=== PATIENT | female | born 1980 | race Caucasian/White ===

== ENCOUNTER 2023-08-25 14:58 | Outpatient (OUT) | payer OTHER, SELFPAY ==
--- NOTE | 2023-08-25 | MM_ITS ---
Patient Name: REBECA DICK MR#: [id number] : 1980 Exam Date: 08/25/2023 Ordering Doctor: DR Michelet Jon . RADIOLOGY REPORT PROCEDURE: MM TOMOSYNTHESIS SCREENING BI COMPARISON: MG MAMM RT DIAG FU, 06/11/2021. MG MAMM SCREEN 3D STEPHANIE CAD, 06/22/2022. INDICATIONS: Screening Calculator Name NCI Breast Cancer Risk Assessment Tool 5 Year Breast Cancer Risk 0.70% Lifetime Breast Cancer Risk 9.90% Personal Breast Cancer No Personal Ovarian Cancer No Treatments None Family Cancers Grandmother-maternal with breast cancer at age 42; Aunt-maternal with breast cancer at age 64. LOCATION: [facility] BREAST COMPOSITION: The breasts are heterogeneously dense,which may obscure small masses. FINDINGS: DIAGNOSTIC CATEGORY 1--NEGATIVE. NO CHANGE FROM COMPARISON ASSESSMENT. Scattered benign-appearing lymph nodes are present. RIGHT BREAST: No significant suspicious finding. LEFT BREAST: No significant suspicious finding. RECOMMENDATIONS: ROUTINE MAMMOGRAM AND CLINICAL EVALUATION IN 12 MONTHS. PLEASE NOTE: A NORMAL MAMMOGRAM DOES NOT EXCLUDE THE POSSIBILITY OF BREAST CANCER. A CLINICALLY SUSPICIOUS PALPABLE LUMP SHOULD BE BIOPSIED. Dictated by: Llye De Los Santos MD on 08/26/2023 at 08:06 Approved by: Lyle De Los Santos MD on 08/26/2023 at 08:08
== END 2023-08-25 14:59 | disposition home or self-care (01) ==
LOC: MAMMO 14:59
PROVIDERS: PCP Family Medicine; Visit Provider Obstetrics & Gynecology
DX: Z12.31 Encounter for screening mammogram for malignant neoplasm of breast (principal); Z80.3 Family history of malignant neoplasm of breast
CPT/HCPCS: 77063; 77067

== ENCOUNTER 2024-08-24 12:58 | Outpatient (OUT) | payer OTHER, SELFPAY ==
--- OUTSIDE RECORDS SUMMARY | 2024-08-15 07:28 | XMS_ITS | Encounter Summary ---
Author Organization [facility] tem Address [id number] [place] [address] Care Team Providers Care Box Finisher Name Role Phone Kristan Bryson MD Primary Care Provider [phone] Reason for Referral * Cardiology (Routine) - Closed Specialty Diagnoses / Procedures Referred By Mumtaz hanna Referred To Contact Diagnoses Palpitation Procedures Echo complete W/O contrast Daisy Weinstein MD [address] [place] [address] Phone: tel: fax: Referral ID Status Reason Start Date Expiration Date Visits Re quested Visits Authorized [id number] Closed 07/20/2024 07/20/2025 1 1 Reason for Visit * Cardiology (Routine) - Closed Specialty Diagnoses / Procedures Referred By Mumtaz hanna Referred To Contact Diagnoses Palpitation Procedures Echo complete W/O contrast Daisy Weinstein MD [address] [place] [address] Phone: tel: fax: Referral ID Status Reason Start Date Expiration Date Visits Re quested Visits Authorized [id number] Closed 07/20/2024 07/20/2025 1 1 Encounter Details Date Type Department Care Team (Latest Contact Info) Description 08/15/2024 7:28 AM EDT - 08/15/2024 11:59 PM EDT Hospital Encounter [facility] - Cardiovascular [address] [place] [phone] Daisy Weinstein MD [address] [place] [address] Palpitation Discharge Disposition: Home Social History Tobacco Use Types Packs/Day Years Used Date Smoking Tobacco: Some Days Cigarettes Started: 09/21/2020 Smokeless Tobacco: Never Alcohol Use Standard Drinks/Week Comments Yes 5 (1 standard drink = 0.6 oz pur e alcohol) 6 PER WK Childcare Answer Date Recorded Childcare Unknown 08/23/2018 Employment Answer Date Recorded Employment Unknown 08/23/2018 Hunger Screening Answer Date Recorded Within the past 12 months we worried whether our food would run out before we got money to buy more. Never True 07/20/2024 Within the past 12 months th e food we bought just didn't last and we didn't have money to get more. Never True 07/20/2024 Purpose - Life Answer Date Recorded Purpose and direction in life Unknown Comments No Sex and Gender Information Value Date Recorded Sex Assigned at Not on file Legal Sex Female 11:37 AM EDT Gender Identity Not on file Sexual Orientation Not on file documented as of this encounter Medications at Time of Discharge metoprolol succinate XL (TOPROL XL) 25 mg 24 hr tabletIndications: Palpitation,Primar y hypertension Take 0.5 tablets (12.5 mg total) by mouth in the morning. 30 tablet 11 07/20/2024 documented as of this encounter Plan of Treatment Not on file documented as of this encounter Procedures Procedure Name Priority Date/Time Associated Diagnosis Comments ECHO COMPLETE WO CONTRAST Routine 08/15/2024 8:05 AM EDT Palpitation documented in this encounter Results * Echo complete W/O contrast (08/15/2024 8:05 AM EDT) LVOT stroke volume 79.48 ml XCELERA LV Systolic Volume 20.70 mL XCELERA EF 70 % XCELERA FS 32 28 - 44 % XCELERA LV Diastolic Volume 69.70 mL XCELERA LVIDd 3.80 cm XCELERA LVIDs 2.60 cm XCELERA IVS 0.90 0.6 - 1.1 cm XCELERA PW 0.90 0.6 - 1.1 cm XCELERA LVOT diameter 2.00 cm XCELERA TDI 15.70 cm/s XCELERA MV TDI E' (medial) 11.70 cm/s XCELERA LA Volume Index 20.0 mL/m2 XCELERA E/A ratio 1.96 XCELERA E wave deceleration time 176.00 msec XCELERA MV Peak E Paul 86.30 cm/s XCELERA MV Peak A Paul 44.10 cm/s XCELERA LA size 3.00 cm XCELERA Aortic root 2.60 cm XCELERA LA volume 35.50 cm3 XCELERA RV diastolic dimension (basal) 29.0 mm XCELERA TAPSE 2.40 cm XCELERA AV peak paul 133.00 cm/s XCELERA LVOT peak paul 1.15 m/s XCELERA AV VTI 27.70 cm XCELERA LVOT peak VTI 25.30 cm XCELERA AV mean gradient 3.00 mmHg XCELERA AV peak gradient 7.08 mmHg XCELERA AV valve area 2.87 XCELERA Valve area - Index 1.6 XCELERA MV pressure 1/2 time 52.00 ms XCELERA MV valve area p 1/2 method 4.23 cm2 XCELERA TR Peak Paul 2.1 m/s XCELERA TR peak gradient 14.44 mmHg XCELERA PV mean gradient 3.00 mmHg XCELERA PV peak gradient 4.84 mmHg XCELERA LV ESV A2C 39.40 mL XCELERA LV ESV A4C 29.80 mL XCELERA LV RWT 2D 47.37 XCELERA Echo EF Estimated 70 % XCELERA AV Velocity Ratio 0.91 XCELERA Left Ventricle Mass 101.73988 [id number] 8 g XCELERA Interventricular Septum Diastolic Thickness by 2D 9 cm XCELERA Est. RA pressure 3 mmHg XCELERA RA area 12.7 cm2 XCELERA RV Peak Systolic Pressure 21 mmHg XCELERA Anatomical Region Laterality Modality Chest N/A Ultrasound Narrative 08/15/2024 11:46 AM EDT Left Ventricle: Left ventricle appears normal in size. Systolic function is normal with an ejection fraction of 60-65%. The quantitative EF by 2D Rosas biplane is 70%. Right Ventricle: Systolic function is normal. Normal tricuspid annular plane systolic excursion. Mitral Valve: The anterior leaflet is thickened possibly prolapsed. There is mild regurgitation. Left Ventricle Left ventricle appears normal in size. Wall thickness is normal. Systolic function is normal with an ejection fraction of 60-65%. The quantitative EF by 2D Rosas biplane is 70%. No obvious regional wall motion abnormalities. Normal diastolic function is present. Lateral E' is 15.70 cm/s. Medial E' is 11.70 cm/s. Right Ventricle The right ventricular basal diameter is 29.0 mm. Systolic function is normal. Normal tricuspid annular plane systolic excursion. Normal systolic excursion velocity by TDI (>9.5 cm/s). Left Atrium Left atrium volume index is normal. The left atrial volume index is 20.0 mL/m2. Right Atrium Right atrium is normal in size. The right atrial area is 12.7 cm2. IVC/SVC The right atrial pressure is estimated at 3 mmHg. There is normal collapse with deep inspiration. Mitral Valve Mitral valve structure is normal. The anterior leaflet is thickened possibly prolapsed. There is mild regurgitation. There is no evidence of mitral valve stenosis. Tricuspid Valve Tricuspid valve appears to be normal. There is mild regurgitation. RVSP calculated at 21 mmHg. RVSP is based on RA pressure of 3 mmHg. Aortic Valve The aortic valve is trileaflet. There is no regurgitation or stenosis. Pulmonic Valve The pulmonic valve was not well visualized. Pulmonic valve structure is grossly normal. There is no regurgitation or stenosis. The peak gradient is 4.84 mmHg. The mean gradient is 3.00 mmHg. Ascending Aorta The aortic root is normal in size. Pericardium The pericardium appears normal. Study Details A complete echo was performed using complete 2D, color flow Doppler and spectral Doppler. Overall the study quality was good. Wall Scoring Baseline Score Index: 1.00 The left ventricular wall motion is normal. us Daisy Weinstein MD CV ECHO ORDERABLES Final Res ult documented in this encounter Visit Diagnoses Diagnosis Palpitation Palpitations documented in this encounter Care Teams Box Finisher Relationship Specialty Start Date End Date Adelaide, Kristan G, MD [address] [place] [address] PCP - General Family Medicine 09/23/17 documented as of this encounter
--- OUTSIDE RECORDS SUMMARY | 2024-08-24 13:00 | XMS_ITS | Encounter Summary ---
Author Organization [employer] tem Address [id number] [address] [place] [address] Care Team Providers Care Pillow Filler Name Role Phone Kristan Bryson MD Primary Care Provider [phone] Encounter Details Date Type Department Care Team (Latest Contact Info) Description 08/15/2024 Travel Social History Tobacco Use Types Packs/Day Years [...] on file documented as of this encounter Plan of Treatment Not on file documented as of this encounter Visit Diagnoses Not on filedocumented in this encounter Care Teams Pillow Filler Relationship Specialty Start Date End Date Kristan Bryson MD [address] [place], [place] [id number] PCP - General Family Medicine 09/23/17 documented as of this encounter
--- OUTSIDE RECORDS SUMMARY | 2024-08-24 13:00 | XMS_ITS | Encounter Summary ---
Author Organization [facility] Address [address] [place] [address] Care Team Providers Care Public Speaking Coach Name Role Phone Paz Correa MD Primary Care Provider [phone] Encounter Details Date Type Department Care Team (Late st Contact Info) Description 08/26/2023 Clinisync Result Encounter [facility] External Department Unsolicited Provider, Generic External Data Social History Tobacco Use Types Packs/Day Years Used Date Smoking Tobacco: Never Assessed Comments Unknown Sex and Gender Information Value Date Recorded Sex Assigned at Female 01/27/2023 5:37 PM EST Legal Sex Female 7:32 PM EDT Gender Identity Female 01/27/2023 5:37 PM EST Sexual Orientation Not on file documented as of this encounter Plan of Treatment Not on file documented as of this encounter Procedures Procedure Name Priority Date/Time Associated Diagnosis Comments MM TOMOSYNTHESIS SCREENING BI 08/26/2023 8:08 AM EDT documented in this encounter Results * MM TOMOSYNTHESIS SCREENING BI (08/26/2023 8:08 AM EDT) Anatomical Region Laterality Modality Other 08/26/2023 8:08 AM EDT Narrative 08/26/2023 8:09 AM EDT The [address] [address] Mammography Report Signed Patient: Rebeca Alves MR#: [id number] : 1980 Acct:[id number] Age/Sex: 43 / F ADM Date: 08/25/23 Loc: MAMMO Attending Dr: Michelet Jon D.O. Ordering Physician: Michelet Jon D.O. Results: Date of Service: 08/25/23 Follow Up: Procedure(s): MM tomosynthesis screening BI Accession Number(s): [id number] cc: Michelet Jon D.O.; FELIPE EDWARDSNIFER Patient Name: REBECA ALVES MR#: [id number] : 1980 Exam Date: 08/25/2023 Ordering Doctor: DR Michelet Jon . RADIOLOGY REPORT PROCEDURE: MM TOMOSYNTHESIS SCREENING BI COMPARISON: MG MAMM RT DIAG FU, 06/11/2021. MG MAMM SCREEN 3D STEPHANIE CAD, 06/22/2022. INDICATIONS: Screening Calculator Name NCI Breast Cancer Risk Assessment Tool 5 Year Breast Cancer Risk 0.70% Lifetime Breast Cancer Risk 9.90% Personal Breast Cancer No Personal Ovarian Cancer No Treatments None Family Cancers Grandmother-maternal with breast cancer at age 42; Aunt-maternal with breast cancer at age 64. LOCATION: [facility] BREAST COMPOSITION: The breasts are heterogeneously dense,which may obscure small masses. FINDINGS: DIAGNOSTIC CATEGORY 1--NEGATIVE. NO CHANGE FROM COMPARISON ASSESSMENT. Scattered benign-appearing lymph nodes are present. RIGHT BREAST: No significant suspicious finding. LEFT BREAST: No significant suspicious finding. RECOMMENDATIONS: ROUTINE MAMMOGRAM AND CLINICAL EVALUATION IN 12 MONTHS. PLEASE NOTE: A NORMAL MAMMOGRAM DOES NOT EXCLUDE THE POSSIBILITY OF BREAST CANCER. A CLINICALLY SUSPICIOUS PALPABLE LUMP SHOULD BE BIOPSIED. Dictated by: Lyle De Los Santos MD on 08/26/2023 at 08:06 Approved by: Lyle De Los Santos MD on 08/26/2023 at 08:08 Dictated By: Lyle De Los Santos M.D. Signed By: 08/26/23 0809 DD/ 0808 TD/TT: Director Of Development: Procedure Note Radiology, RadiologistMD - 08/26/2023 [place] [address] Mammography Report Signed Patient: Rebeca Alves AMR#: [id number] : 1980Acct:[id number] Age/Sex: 43 / FADM Date: 08/25/23 Loc: MAMMO Attending Dr: Michelet Jon D.O. Ordering Physician: Michelet Jon D.O.Results: Date of Service: 08/25/23Follow Up: Procedure(s): MM tomosynthesis screening BI Accession Number(s): [id number] cc: Michelet Jon D.O.; MARVIN EDWARDS Patient Name: REBECA ALVES MR#: [id number] : 1980 Exam Date: 08/25/2023 Ordering Doctor: DR Michelet Jon . RADIOLOGY REPORT PROCEDURE: MM TOMOSYNTHESIS SCREENING BI COMPARISON: MG MAMM RT DIAG FU, 06/11/2021. MG MAMM SCREEN 3D STEPHANIE CAD, 06/22/2022. INDICATIONS: Screening Calculator Name NCI Breast Cancer Risk Assessment Tool 5 Year Breast Cancer Risk 0.70% Lifetime Breast Cancer Risk 9.90% Personal Breast Cancer No Personal Ovarian Cancer No Treatments None Family Cancers Grandmother-maternal with breast cancer at age 42; Aunt-maternal with breast cancer at age 64. LOCATION: [facility] BREAST COMPOSITION: The breasts are heterogeneously dense,which may obscure small masses. FINDINGS: DIAGNOSTIC CATEGORY 1--NEGATIVE. NO CHANGE FROM COMPARISON ASSESSMENT. Scattered benign-appearing lymph nodes are present. RIGHT BREAST: No significant suspicious finding. LEFT BREAST: No significant suspicious finding. RECOMMENDATIONS: ROUTINE MAMMOGRAM AND CLINICAL EVALUATION IN 12 MONTHS. PLEASE NOTE: A NORMAL MAMMOGRAM DOES NOT EXCLUDE THE POSSIBILITY OFBREAST CANCER. A CLINICALLY SUSPICIOUS PALPABLE LUMP SHOULD BE BIOPSIED. Dictated by: Lyle De Los Santos MD on 08/26/2023 at 08:06 Approved by: Lyle De Los Santos MD on 08/26/2023 at 08:08 Dictated By: Lyle De Los Santos M.D. Signed By:08/26/23 0809 DD/ 0808 TD/TT: Director Of Development: us Generic External Data Provider [facility] Final Result documented in this encounter Visit Diagnoses Not on filedocumented in this encounter Care Teams Public Speaking Coach Relationship Specialty Start Date End Date Paz Correa MD [address] [place] [address] PCP - General Family Medicine 07/20/22 documented as of this encounter
--- OUTSIDE RECORDS SUMMARY | 2024-08-24 13:00 | XMS_ITS | Encounter Summary ---
Author Organization [employer] [facility] Address [id number] [place] [address] Care Team Providers Care Animal Nursery Worker Name Role Phone Kristan Bryson MD Primary Care Provider Encounter Details Date Type Department Care Team (Late st Contact Info) Description 10/08/2020 Orders Only [facility] [address] [place] [phone] External, Scanning Provider Social History Tobacco Use Types Packs/Day Years Used Date Smoking Tobacco: Former Cigarettes S tarted: 09/21/2020 Smokeless Tobacco: Never Alcohol Use Standard Drinks/Week Comments Yes 0 (1 standard drink = 0.6 oz pur e alcohol) 6 PER WK Childcare Answer Date Recorded Childcare Unknown 08/23/2018 Employment Answer Date Recorded Employment Unknown 08/23/2018 Purpose - Life Answer Date Recorded Purpose and direction in life Unknown Comments No Sex and Gender Information Value Date Recorded Sex Assigned at Not on file Legal Sex Female 11:37 AM EDT Gender Identity Not on file Sexual Orientation Not on file COVID-19 Exposure Response Date Recorded In the last month, have you been in contact with someone who was confirmed or suspected to have Coronavirus / COVID-19? No / Unsure 10/07/2020 1:52 PM EDT documented as of this encounter Plan of Treatment Not on file documented as of this encounter Procedures Procedure Name Priority Date/Time Associated Diagnosis Comments ECG 12-LEAD Routine 09/24/2020 2:49 PM EDT MULTIPLE LABS Routine 09/24/2020 MULTIPLE LABS Routine 09/24/2020 documented in this encounter Results * ECG 12 lead (09/24/2020 2:49 PM EDT) us Scanning Provider External ECG ORDERABLES Final Result Performing Organization Address City/[facility] Co de Phone Number MANUALLY TRANSCRIBED RESULTS * Multiple labs (09/24/2020) 09/24/2020 us Scanning Provider External CT IMAGING Final Result Performing Organization Address [facility] Co de Phone Number MANUALLY TRANSCRIBED RESULTS * Multiple labs (09/24/2020) 09/24/2020 us Scanning Provider External CT IMAGING Final Result Performing Organization Address [facility] Co de Phone Number MANUALLY TRANSCRIBED RESULTS documented in this encounter Visit Diagnoses Not on filedocumented in this encounter Care Teams Animal Nursery Worker Relationship Specialty Start Date End Date Kristan Bryson MD [address] [place] [address] PCP - General Family Medicine 09/23/17 documented as of this encounter
--- OUTSIDE RECORDS SUMMARY | 2024-08-24 13:00 | XMS_ITS | Clinical Summary ---
Author Organization [employer] tem Address [id number] [place] [address] Care Team Providers Care Visitor Services Assistant Name Role Phone Kristan Bryson MD Primary Care Provider Allergies No known active allergies Medications metoprolol succinate XL (TOPROL XL) 25 mg 24 hr tabletIndications :Palpitation,Prim stephanie hypertension Take 0.5 tablets (12.5 mg total) by mouth in the morning. 30 tablet 11 Active Active Problems Problem Noted Date Diagnosed Date Tachycardia 10/07/2020 Encounters Date Type Department Care Team Description 08/15/2024 7:28 AM EDT - 08/15/2024 11:59 PM EDT Hospital Encounter [facility] - Cardiovascular [address] [place] [phone] Daisy Weinstein MD Palpitation Discharge Disposition: Home 08/15/2024 Travel 07/20/2024 9:30 AM EDT Office Visit [facility] [address] [place] [phone] Daisy Weinstein MD Tachycardia (Primary Dx); Palpitation; Primary hypertension 07/18/2024 Travel from Last 3 Months Family History Medical History Relation Name Comments Heart disease Father Carlyle sierra Mitral valve a nd a pacemaker and had some other work done on his heart in june of 2024 Breast cancer Maternal Grandmother Teto ayon No Known Problems Mother Relation Name Status Comments Father Carlyle sierra Alive Maternal Grandmother Teto ayon Mother Alive Social History Tobacco Use Types Packs/Day Years Used Date Smoking Tobacco: Some Days Cigarettes Started: 09/21/2020 Smokeless Tobacco: Never Tobacco Cessation:Ready to Q uit: Not Asked; Counseling Given: Not Answered Alcohol Use Standard Drinks/Week Comments Yes 5 [...] on file Sexual Orientation Not on file Last Filed Vital Signs Vital Sign Reading Time Taken Comments Blood Pressure 134/82 07/20/2024 9:15 AM EDT Pulse 82 07/20/2024 9:15 AM EDT Temperature - - Respiratory Rate - - Oxygen Saturation 98% 07/20/2024 9:15 AM EDT Inhaled Oxygen Concentration - - Weight 68.8 kg (151 lb 9.6 oz) 07/20/2024 9:15 A M EDT Height 165.1 cm (5' 5 ) 07/20/2024 9:15 AM EDT Body Mass Index 25.23 07/20/2024 9:15 AM EDT Plan of Treatment Health Maintenance Due Date Last Done Comments Tobacco Counseling 1980 Depression Screening 1992 Adult BMI Follow Up Plan 1998 DTaP,Tdap and Td Vaccines (6 - Tdap) 03/11/1999 03/10/1999, 08/02/1985, 09/11/1981, Additional history exists Influenza Vaccine 11/12/2024 01/06/2009 Pap Smear 06/11/2025 06/11/2022 Adult BMI Screening 07/20/2025 07/20/2024 Tobacco Screening 07/20/2025 07/20/2024 Medical Devices Not on file Procedures Procedure Name Priority Date/Time Associated Diagnosis Comments ECHO COMPLETE WO CONTRAST Routine 08/15/2024 8:05 AM EDT Palpitation POCT EKG Routine 07/20/2024 Tachycardia from Last 3 Months Results * Echo complete W/O contrast (08/15/2024 [...] Velocity Ratio 0.91 XCELERA Left Ventricle Mass 101.81321 [id number] 8 g XCELERA Interventricular Septum Diastolic Thickness [...] MD CV ECHO ORDERABLES Final Res ult * POCT EKG (07/20/2024) us Daisy Weinstein MD ECG ORDERABLES Final Result Performing Organization Address City/State/[facility] Co de Phone Number MANUALLY TRANSCRIBED RESULTS from Last 3 Months Insurance [employer] Member Subscriber Plan / Payer (Ef fective 2024-Present) Name:Margo Alves Relation to Subscriber:Spouse Name:Suman Alves Date of :1983 Address: [address] [place] [address] Payer ID:Not on file Type:Not on file Address: [facility] [address] [id number] Care Teams Visitor Services Assistant Relationship Specialty Start Date End Date Kristan Bryson MD [address] [place] [address] PCP - General Family Medicine 09/23/17
--- OUTSIDE RECORDS SUMMARY | 2024-08-24 13:00 | XMS_ITS | Clinical Summary ---
Author Organization [facility] Address [address] [place] [address] Care Team Providers Care Wire Insulator Name Role Phone Paz Correa MD Primary Care Provider [phone] Allergies No known active allergies Medications No known medications Active Problems Problem Noted Date Diagnosed Date Dyspareunia in female 06/29/2024 Flexural atopic dermatitis 06/29/2024 Menorrhagia with irregular cycle 06/29/2024 Tachycardia 10/07/2020 Encounters Date Type Department Care Team Description 06/29/2024 9:40 AM EDT Office Visit [facility] [address] [place] [phone] Paz Correa MD Acute pharyngitis, unspecified etiology (Primary Dx) 06/29/2024 Bamboo flowsheet [facility] [address] [place] [phone] Paz Correa MD 06/29/2024 Travel from Last 3 Months Family History Medical History Relation Name Comments Rheum arthritis Mother Relation Name Status Comments Father Alive Mother Alive Social History Tobacco Use Types Packs/Day Years Used Date Smoking Tobacco: Every Day Cigarettes Smokeless Tobacco: Never Tobacco Cessation:Ready to Q uit: Not Asked; Counseling Given: Not Answered Alcohol Use Standard Drinks/Week Comments Yes 0 (1 standard drink = 0.6 oz pur e alcohol) PHQ-2 Answer Date Recorded Patient Health Questionnaire-2 Score 0 06/29/2024 Comments No Sex and Gender Information Value Date Recorded Sex Assigned at Female 01/27/2023 5:37 PM EST Legal Sex Female 7:32 PM EDT Gender Identity Female 01/27/2023 5:37 PM EST Sexual Orientation Not on file Last Filed Vital Signs Vital Sign Reading Time Taken Comments Blood Pressure 136/78 06/29/2024 9:42 AM EDT Pulse 81 06/29/2024 9:42 AM EDT Temperature - - Respiratory Rate 18 06/29/2024 9:42 AM EDT Oxygen Saturation 99% 06/29/2024 9:42 AM EDT Inhaled Oxygen Concentration - - Weight 70.8 kg (156 lb) 06/29/2024 9:42 AM EDT Height 167.6 cm (5' 6 ) 06/29/2024 9:42 AM EDT Body Mass Index 25.18 06/29/2024 9:42 AM EDT Plan of Treatment Health Maintenance Due Date Last Done Comments Mammogram 08/25/2024 08/26/2023, 06/12, 05/18/2021, Additional history exists Influenza Vaccine (Season Ended) 2024 Cervical Cancer Screening 06/12/2027 HPV/Cotest 06/12/2027 Pap Smear 06/12/2027 06/11/2022 Procedures Procedure Name Priority Date/Time Associated Diagnosis Comments POCT RAPID STREP A Routine 06/29/2024 12 :35 PM EDT Acute pharyngitis, unspecified etiology MM TOMOSYNTHESIS SCREENING BI 08/26/2023 8:08 AM EDT PAP SMEAR Routine 06/11/2022 12:00 AM EDT from Last 3 Months or Most Recently Relevant to Health Maintenance Results * (ABNORMAL) POCT rapid strep A manually resulted (06/29/2024 12:35 PM EDT) Rapid Strep A Screen Positive( A) Negative, None Detected Swab 06/29/2024 12:3 5 PM EDT Paz Correa MD POINT OF CARE TEST ENTER/EDIT OR DERABLES Final Result * MM TOMOSYNTHESIS SCREENING BI (08/26/2023 8:08 AM EDT) Anatomical Region Laterality Modality Other 08/26/2023 8:08 AM EDT Narrative 08/26/2023 8:09 AM EDT The [address] [address] Mammography Report Signed Patient: Rebeca Alves MR#: [id number] : 1980 Acct:[id number] Age/Sex: 43 / F ADM Date: 08/25/23 Loc: MAMMO Attending Dr: Michelet Jon D.O. Ordering Physician: Michelet Jon D.O. Results: Date of Service: 08/25/23 Follow Up: Procedure(s): MM tomosynthesis screening BI Accession Number(s): [id number] cc: Michelet Jon D.O.; MARVIN EDWARDS Patient Name: REBECA ALVES MR#: [id number] : 1980 Exam Date: 08/25/2023 Ordering Doctor: [...] breast cancer at age 64. LOCATION: The [facility] BREAST COMPOSITION: The breasts are heterogeneously [...] Lyle De Los Santos M.D. Signed By: 08/26/2309 DD/ 7 TD/TT: [employer] Integrator: Procedure Note Radiology, Radiologist, - 08/26/2023 [place] [address] Mammography Report Signed Patient: Rebeca Alves AMR#: [id number] : 1980Acct:[id number] Age/Sex: 43 / FADM Date: 08/25/23 Loc: MAMMO Attending Dr: Michelet Jon D.O. Ordering Physician: Michelet Jon D.O.Results: Date of Service: 08/25/23Follow Up: Procedure(s): MM tomosynthesis screening BI Accession Number(s): [id number] cc: Michelet Jon D.O.; MARVIN EDWARDS Patient Name: REBECA ALVES MR#: [id number] : 1980 Exam Date: 08/25/2023 Ordering Doctor: [...] breast cancer at age 64. LOCATION: The [facility] BREAST COMPOSITION: The breasts are heterogeneously [...] M.D. Signed By:08/26/23 0809 DD/ 0808 TD/TT: [employer] Integrator: us Generic External Data Provider [facility] Final Result * Pap Smear (06/11/2022 12:00 AM EDT) Swab Cervical swab / Unknown us Freddy Flaherty MD LAB CYTOLOGY ORDERABLES Final Result EXTERNAL LAB from Last 3 Months or Most Recently Relevant to Health Maintenance Insurance [employer] Care Teams Wire Insulator Relationship Specialty Start Date End Date Paz Correa MD [address] [phone] PCP - General Family Medicine 07/20/22
--- OUTSIDE RECORDS SUMMARY | 2024-08-24 13:00 | XMS_ITS | Encounter Summary ---
Author Organization [facility] Address [id number] [place] [address] Care Team Providers Care Operations Lead Name Role Phone Kristan Brsyon MD Primary Care Provider [phone] Encounter Details Date Type Department Care Team (Late st Contact Info) Description 10/02/2020 Orders Only [facility] [address] [place] [phone] External, Scanning Provider Social History Tobacco Use Types Packs/Day Years Used Date Smoking Tobacco: Never Assessed Childcare Answer Date Recorded Childcare Unknown 08/23/2018 [...] Procedure Name Priority Date/Time Associated Diagnosis Comments HOLTER MONITOR - UP TO 24 HOUR Routine 02/10/2010 NUC STRESS LEXISCAN/EXERCISE Routine 03/24/2009 ECHO DOPPLER Routine 03/24/2009 documented in this encounter Results * Holter monitor-24 hour (02/10/2010) Anatomical Region Laterality Modality Chest N/A Other us Scanning Provider External [facility] CARDIAC SERVICES O RDERABLES Final Result * Echo Doppler (03/24/2009) Anatomical Region Laterality Modality Chest N/A Ultrasound us Scanning Provider External CV ECHO ORDERABLES Fi nal Result * Nuc stress Lexiscan/Exercise (03/24/2009) Anatomical Region Laterality Modality Chest N/A Nuclear Medicine us Scanning Provider External CV STRESS ORDERABLES Final Result documented in this encounter Visit Diagnoses Not on filedocumented in this encounter Care Teams Operations Lead Relationship Specialty Start Date End Date Kristan Bryson MD [address] [place] [address] PCP - General Family Medicine 09/23/17 documented as of this encounter
--- NOTE | 2024-08-24 13:22 | MM_ITS ---
Patient Name: REBECA DICK MR#: [id number] : 1980 Exam Date: 08/24/2024 Ordering Doctor: SANCHO ALCALA RADIOLOGY REPORT PROCEDURE: MM TOMOSYNTHESIS SCREENING BI COMPARISON: MM TOMOSYNTHESIS SCREENING BI, 08/25/2023. MG MAMM SCREEN 3D STEPHANIE CAD, 06/22/2022. MG MAMM STEPHANIE DIAG W CAD, 07/30/2009. INDICATIONS: Screening Calculator Name NCI Breast Cancer Risk Assessment Tool 5 Year Breast Cancer Risk 0.80% Lifetime Breast Cancer Risk 9.80% Personal Breast Cancer No Personal Ovarian Cancer No Treatments None Family Cancers Grandmother-paternal with brain cancer at age 60; Grandmother-maternal with breast cancer at age 42; Aunt-maternal with breast cancer at age 64. LOCATION: [facility] BREAST COMPOSITION: The breasts are heterogeneously dense,which may obscure small masses. FINDINGS: RIGHT BREAST: MASS (finding with convex borders visible on two orthogonal views), characterized by obscured indeterminate morphology, posterior depth, 10 o'clock position, and 8 mm size. DIAGNOSTIC CATEGORY 0--INCOMPLETE: NEED ADDITIONAL IMAGING EVALUATION. LEFT BREAST: No significant suspicious finding. RECOMMENDATIONS: ADDITIONAL MAMMOGRAPHIC VIEWS REQUIRED: RIGHT BREAST - 8 ULTRASOUND: RIGHT BREAST PLEASE NOTE: A NORMAL MAMMOGRAM DOES NOT EXCLUDE THE POSSIBILITY OF BREAST CANCER. A CLINICALLY SUSPICIOUS PALPABLE LUMP SHOULD BE BIOPSIED. Dictated by: Antwan Gee DO on 08/24/2024 at 14:20 Approved by: Antwan Gee DO on 08/24/2024 at 14:28
--- OUTSIDE RECORDS SUMMARY | 2024-08-24 13:26 | XMS_ITS | CCD ---
Author Organization [facility] Care Team Providers Care Dyer And Washer Name Role Phone KARINESSAK ., DR PALMA Admitting Unavailabl e KARASIK ., DR PALMA Attending Unavailabl e KARASIK ., DR PALMA Consulting Unavailabl e GRACE, DR WONG Primary Care Unavailable MARIBEL KANG Consulting Unavailable ALISON II, JEAN CLAUDE Consulting Unavailable KARASIK ., DR PALMA Admitting Unavailabl e KARASIK ., DR PALMA Attending Unavailabl e REQUEST, DR HAGEN LISTED Primary Care Unavaila ble KARASIK ., DR PALMA Consulting Unavailabl e KARASIK ., DR PALMA Admitting Unavailabl e KARASIK ., DR PALMA Attending Unavailabl e REQUEST, DR HAGEN LISTED Primary Care Unavaila ble KARASIK ., DR PALMA Consulting Unavailabl e ZIEBMIKE, DR ADAMA Camacho Consulting Unavailable KARASIK ., DR PALMA Admitting Unavailabl e KARASIK ., DR PALMA Attending Unavailabl e GRACE, DR WONG Primary Care Unavailable KARASIK ., DR PALMA Consulting Unavailabl e KARASIK ., DR PALMA Admitting Unavailabl e KARASIK ., DR PALMA Attending Unavailabl e GRACE, DR WONG Primary Care Unavailable KARASIK ., DR PALMA Consulting Unavailabl e KARASIK ., DR PALMA Admitting Unavailabl e KARASIK ., DR PALMA Attending Unavailabl e GRACE, DR WONG Primary Care Unavailable KARASIK ., DR PALMA Consulting Unavailabl e AGUBOSIMAGNOLIA Pineda Consulting Unavailable FLAQUITO LANDRUM Consulting Unavailable ARYAN DE SOUZA Consulting Unavailable Paz Correa MD Primary Care Provider PAZ CORREA Attending Unavailable SANCHO GIORDANO Attending Unavailable Kristan Edwards MD Primary Care Provider [phone] DAISY JOHNSON Attending Unavailable KRISTAN EDWARDS Referring Unavailable KRISTAN EDWARDS Primary Care Unavailable DAISY JOHNSON Attending Unavailable DAISY JOHNSON Referring Unavailable KRISTAN EDWARDS Primary Care Unavailable Medications Current Medications Medication Drug Class(es) Dates Sig (Normalized) Sig (Original) amoxicillin 500 mg oral capsule (2 sources) Penicillin-class Antibacterial Start: 06-29-2024 End: 07-06-2024 take 1 capsule by mouth in the morning, then take 1 capsule by mouth in the evening, then take 1 capsule by mouth at bedtime amoxicillin (Amoxil) 500 MG capsule Indications: Acute pharyngitis, unspecified etiology Take 1 capsule (500 mg) by mouth in the morning and 1 capsule (500 mg) in the evening and 1 capsule (500 mg) before bedtime. Do all this for 7 days. 21 capsule 06/29/2024 07/06/2024 Active 24 hr metoprolol succinate 25 mg extended release oral tablet (2 sources) beta-Adrenergic Ignacio Start: 07-20-2024 take 0.5 tablet by mouth every twenty-four hours in the morning metoprolol succinate XL (TOPROL XL) 25 mg 24 hr tablet Indications: Palpitation , Primary hypertension Take 0.5 tablets (12.5 mg total) by mouth in the morning. 30 tablet 11 07/20/2024 Active Start: 11-25-2020 End: 07-20-2024 take 0.5 tablet by mouth once daily metoprolol succinate XL (TOPROL-XL) 25 mg 24 hr tablet Take 0.5 tablets (12.5 mg total) by mouth daily. 30 tablet 11/25/2020 07/20/2024 Discontinued (Reorder) Problems Active Problems Problem Classification Problem Date Documented Date Episodic/Chronic Abdominal pain (5 sources) Pelvic and perineal pain; Translations: [PELVIC AND PERINEAL PAIN] Onset: 07-24-2021 Episodic Allergic reactions (2 sources) Flexural atopic dermatitis; Translations: [Other atopic dermatitis] Onset: 06-29-2024 06-29-2024 Chronic Cardiac dysrhythmias (8 sources) Tachycardia; Translations: [Tachycardia, unspecified] Onset: 10-07-2020 06-29-2024 Episodic Essential hypertension (3 sources) Essential (primary) hypertension; Translations: [Essential hypertension] Onset: 08-18-2021 07-20-2024 Chronic Immunizations and screening for infectious disease (1 source) Encounter for screening for human papillomavirus (HPV); Translations: [ENC SCREENING HUMAN PAPILLOMAVIRUS] Onset: 06-18-2022 Episodic Menstrual disorders (4 sources) Excessive and frequent menstruation with irregular cycle; Translations: [Dysmenorrhea, unspecified] Onset: 08-18-2021 06-29-2024 Chronic Other female genital disorders (1 source) Unspecified dyspareunia; Translations: [UNSPECIFIED DYSPAREUNIA] Onset: 06-17-2022 Chronic Other female genital disorders (2 sources) Pain in female genitalia on intercourse; Translations: [Unspecified dyspareunia] Onset: 06-29-2024 06-29-2024 Chronic Other screening for suspected conditions (not mental disorders or infectious disease) (8 sources) Encounter for screening mammogram for malignant neoplasm of breast; Translations: [Encounter for screening for malignant neoplasm of cervix] Onset: 06-11-2022 Episodic Other upper respiratory infections (2 sources) Acute pharyngitis; Translations: [Acute pharyngitis, unspecified] 06-29-2024 Episodic Residual codes; unclassified (1 source) Family history of malignant neoplasm of breast; Translations: [FAMILY HX MALIG NEOPLASM OF BREAST] Onset: 06-28-2022 Episodic Substance-related disorders (1 source) Nicotine dependence, cigarettes, uncomplicated; Translations: [NICOTINE DEPEND CIGARETTES UNCOMP] Onset: 06-17-2022 Chronic Unclassified (1 source) CONTACT W/AND (SUSP) EXPOS COVID-19; Translations: [CONTACT W/AND (SUSP) EXPOS COVID-19] Onset: 08-05-2021 Unclassified (1 source) New Patient Onset: 07-20-2024 Past or Other Problems Problem Classification Problem Date Documented Da te Episodic/Chronic Contraceptive and procreative management (1 source) Tubal ligation status; Translations: [TUBAL LIGATION STATUS] Onset: 08-18-2021 Episodic Inflammatory diseases of female pelvic organs (1 source) Female pelvic peritoneal adhesions (postinfective); Translations: [FE PELV PERITON ADHES POSTINFECTIVE] Onset: 08-18-2021 Episodic Other female genital disorders (1 source) Hypertrophy of uterus; Translations: [HYPERTROPHY OF UTERUS] Onset: 08-18-2021 Episodic Other female genital disorders (1 source) Other specified conditions associated with female genital organs and menstrual cycle; Translations: [OTH SPEC COND FE GEN ORG MENST CYCL] Onset: 08-18-2021 Episodic Results Test Name Value Interpretation Reference Range Facility POCT EKGon 07-20-2024 [facility] - Microbiology an d Antimicrobial susceptibilityon 06-29-2024 S. pyogenes Ag Ql (Throat) Positive Abnormal Negative, None Detected [facility] No Panel Informationon 06-29 Interpretation and review of laboratory results Abnormal [facility] MG MAMM SCREEN 3D STEPHANIE CADon 06-22-2022 MG MAMM SCREEN 3D STEPHANIE CAD Patient: MARGO DICK Exam Date: 06/22/2022 : 1980 Gender:F Ordering : DR MINERVA VARMA . Admission #: [id number] Family : Order #: [id number] CLICK HERE TO VIEW EXAM RADIOLOGY REPORT PROCEDURE: MAMMOGRAM SCREENING 3D BILATERAL CAD COMPARISON: MG MAMM RT DIAG FU, 06/11/2021. MG MAMM SCREEN 3D STEPHANIE CAD, 05/18/2021. MG MAMM STEPHANIE DIAG W CAD, 07/30/2009. INDICATIONS: Screening mammography Calculator Name NCI Breast Cancer Risk Assessment Tool 5 Year Breast Cancer Risk 0.70% Lifetime Breast Cancer Risk 10.00% Personal Breast Cancer No Personal Ovarian Cancer No Treatments None Family Cancers Grandmother-maternal with breast cancer at age 42; Aunt-maternal with breast cancer at age 64. LOCATION: [facility] BREAST COMPOSITION: Heterogeneously dense,which may obscure small masses. FINDINGS: DIAGNOSTIC CATEGORY 1--NEGATIVE. RIGHT BREAST: No significant suspicious finding. No significant change has occurred. LEFT BREAST: No significant suspicious finding. No significant change has occurred. RECOMMENDATIONS: ROUTINE MAMMOGRAM AND CLINICAL EVALUATION IN 12 MONTHS. PLEASE NOTE: A NORMAL MAMMOGRAM DOES NOT EXCLUDE THE POSSIBILITY OF BREAST CANCER. A CLINICALLY SUSPICIOUS PALPABLE LUMP SHOULD BE BIOPSIED. Dictated by: Adama Ugalde M.D. on 06/22/2022 at 13:05 Approved by: Adama Ugalde M.D. on 06/22/2022 at 13:08 Normal [facility] PAP ACOG PANEL 2: 30 to 65on 06-21-2022 . . Normal [facility] Comment on above: Result Comment: Perf ormed at: WB Performed By: #### [id number] #### [facility] [address] [address] [address] Nba De León Age Gdln ACOG Testing 30-65 Normal [facility] Comment on above: Performed By: #### [id number] #### [facility] [address] [address] [address] Nba De León DIAGNOSIS: Comment Normal [facility] Comment on above: Result Comment: NEGA TIVE FOR INTRAEPITHELIAL LESION OR MALIGNANCY. REACTIVE CELLULAR CHANGES AND/OR REPAIR ARE PRESENT. Performed at: WB Performed By: #### [id number] #### [facility] [address] [place] [address] Dr. Nba De León Electronically signed by: Comment Normal [facility] Comment on above: Result Comment: Liliana Keys MD, Pathologist Performed at: WB Performed By: #### [id number] #### [facility] [address] [address] [address] Nab De León HPV Aptima Negative Normal Negative [facility] Comment on above: Result Comment: This nucleic acid amplification test detects fourteen high-risk HPV types (16,18,31,33,35,39,45,51,52,56,58,59,66,68) without differentiation. Performed at: =G Performed By: #### [id number] #### [facility] [address] [address] [address] Nba De León HPV Genotype Reflex Comment Normal [facility] Comment on above: Result Comment: Crit eria not met, HPV Genotype not performed. Performed at: WB Performed By: #### [id number] #### [facility] [address] [address] [address] Nba De León Methodology: Comment Normal [facility] Comment on above: Result Comment: This liquid based ThinPrep(R) pap test was screened with the use of an image guided system. Performed at: WB Performed By: #### [id number] #### [facility] [address] [place] [address] Dr. Nba De León Note: Comment Normal [facility] Comment on above: Result Comment: The Pap smear is a screening test designed to aid in the detection of premalignant and malignant conditions of the uterine cervix. It is not a diagnostic procedure and should not be used as the sole means of detecting cervical cancer. Both false-positive and false-negative reports do occur. . Performed at: WB Performed By: #### [id number] #### [facility] [address] [place] [address] Dr. Nba De León Performed by: Comment Normal [facility] Comment on above: Result Comment: Yasmin Reyes, Green Building Architect (ASCP) Performed at: WB Performed By: #### [id number] #### [facility] [address] [place] [address] Dr. Nba De León Specimen adequacy: Comment Normal [facility] Comment on above: Result Comment: Sati sfactory for evaluation. Endocervical and/or squamous metaplastic cells (endocervical component) are present. Performed at: WB Performed By: #### [id number] #### [facility] [address] [place] [address] Dr. Nba De León URon 06-14-2022 , QUAL Negative Normal NEGATIVE [facility] Comment on above: Performed By: #### P REGU #### [facility] [address] [place] [address] Dr. Nba De León PREG HCG QUALon 08-03-2021 , QUAL Negative Normal NEGATIVE [facility] Comment on above: Performed By: #### P REG #### [facility] [address] [place] [address] Dr. Nba De León Covid-19 PCR (CVDTB)on 07-12 SARS-CoV-2 (COVID-19) RNA MARQUIS+probe Ql (Unsp spec) Not detected Normal NOT DETECTED [facility] Comment on above: Result Comment: This test is not yet approved or cleared by the [place] FDA. When there are no FDA-approved or cleared tests available, and other criteria are met, FDA can make tests available under an emergency access mechanism called an Emergency Use Authorization (EUA). The EUA for this test is supported by the [place] of Health and Human Service's (HHS's) declaration that circumstances exist to justify the emergency use of in vitro diagnostics for the detection and/or diagnosis of the virus that causes COVID-19. This EUA will remain in effect (meaning this test can be used) for the duration of the COVID-19 declaration justifying emergency of IVDs, unless it is terminated or revoked by FDA (after which the test may no longer be used). When diagnostic testing is negative, the possibility of a false negative should be considered in the context of a patient's recent exposures and the presence of clinical signs and symptoms consistent with SARS-CoV-2. Performed By: #### C [facility] #### [facility] [address] [place] [address] Dr. Nba De León Vital Signs Date Time Vital Sign Value Performing Clinician Facility 07-20-2024 09:15-0400 Body height 165.1 cm Daisy Johnson MD Work Phone: [facility] 07-20-2024 09:15-0400 Body mass index (BMI) [Ratio] 25.23 kg/m2 Daisy Johnson MD Work Phone: [facility] 07-20-2024 09:15-0400 Body weight 68.77 kg Daisy Johnson MD Work Phone: [facility] 07-20-2024 09:15-0400 Diastolic blood pressure 82 mm[Hg] Daisy Johnson MD Work Phone: [facility] 07-20-2024 09:15-0400 Heart rate 82 /min Daisy Johnson MD Work Phone: [facility] 07-20-2024 09:15-0400 SaO2% (BldA) [Mass fraction] 98 % Daisy Johnson MD Work Phone: [facility] 07-20-2024 09:15-0400 Systolic blood pressure 134 mm[Hg] Daisy Johnson MD Work Phone: [facility] 06-29-2024 09:42-0400 Body height 167.6 cm Paz Correa MD Work Phone: [facility] 06-29-2024 09:42-0400 Body mass index (BMI) [Ratio] 25.18 kg/m2 Paz Correa MD Work Phone: [facility] 06-29-2024 09:42-0400 Body weight 70.76 kg Paz Correa MD Work Phone: [facility] 06-29-2024 09:42-0400 Diastolic blood pressure 78 mm[Hg] Paz Correa MD Work Phone: [facility] 06-29-2024 09:42-0400 Heart rate 81 /min Paz Correa MD Work Phone: [facility] 06-29-2024 09:42-0400 Respiratory rate 18 /min Paz Correa MD Work Phone: [facility] 06-29-2024 09:42-0400 SaO2% (BldA) [Mass fraction] 99 % Paz Correa MD Work Phone: [facility] 06-29-2024 09:42-0400 Systolic blood pressure 136 mm[Hg] Paz Correa MD Work Phone: [facility] 02-21-2024 12:58-0500 Body mass index (BMI) [Ratio] 24.05 kg/m2 Sancho Floro CNM Work Phone: [facility] 02-21-2024 12:58-0500 Body weight 67.59 kg Sancho Floro CNM Work Phone: [facility] 02-21-2024 12:58-0500 Diastolic blood pressure 100 mm[Hg] Sancho Floro CNM Work Phone: [facility] 02-21-2024 12:58-0500 Systolic blood pressure 150 mm[Hg] Sancho Floro CNM Work Phone: [facility] Encounters Encounter Date Encounter Type Care Provider Facility Start: 08-15-2024 End: 08-15-2024 ambulatory [facility] Start: 07-20-2024 End: 07-20-2024 Office outpatient new 45 minutes Daisy Johnson MD Work Phone: [facility] Comment on above: Tachycardia (Primary Dx); Palpitation; Primary hypertension Start: 07-20-2024 End: 07-20-2024 ambulatory [facility] Start: 06-29-2024 End: 06-29-2024 Bamboo flowsheet Paz Correa MD Work Phone: [facility] Start: 06-29-2024 End: 06-29-2024 Bamboo flowsheet Paz Correa MD Work Phone: [facility] Start: 06-29-2024 End: 06-29-2024 Office outpatient visit 15 minutes Paz Correa MD Work Phone: [facility] Comment on above: Acute pharyngitis, u nspecified etiology (Primary Dx) Start: 06-29-2024 End: 06-29-2024 ambulatory PAZ CORREA Not Available Start: 02-21-2024 End: 02-21-2024 Bamboo flowsheet Sancho Fairo CNM Work Phone: [facility] Start: 02-21-2024 End: 02-21-2024 Bamboo flowsheet Sancho Fairo CNM Work Phone: [facility] Start: 02-21-2024 End: 02-21-2024 Gynecological examination normal Sancho Fairo CNM Work Phone: [facility] Start: 02-21-2024 End: 02-21-2024 Patient encounter status Sancho Fairo CNM Work Phone: [facility] Work Phone: Start: 02-21-2024 End: 02-21-2024 Periodic preventive med est patient 40-64yrs Sancho Fairradha CN Work Phone: [facility] Comment on above: Wellness examination (Primary Dx); Normal gynecologic examination Start: 02-21-2024 End: 02-21-2024 ambulatory SANCHO L GIULIANA Not Available Start: 06-22-2022 End: 06-23-[address] MINERVA VARMA . Facility:[facility] Start: 06-14-2022 End: 06-14-[address] MINERVA VARMA . Facility:[facility] Start: 06-11-2022 End: 06-11-[address] MINERVA VARMA . Facility:[facility] Start: 08-05-2021 Encounter for preprocedural laboratory examination DR MINERVA VARMA . [facility] Start: 08-03-2021 End: 08-03-[address] MINERVA VARMA . Facility:[facility] Start: 07-30-2021 End: 07-31-[address] MINERVA VARMA . Facility:[facility] Start: 07-30-2021 End: 07-31-2021 Encounter for preprocedural laboratory examination DR MINERVA VARMA . Facility:[facility] Start: 07-21-2021 End: 07-22-[address] MINERVA VARMA . Facility:[facility] Procedures Date Procedure Procedure Detail Performing Clinician Start: 07-20-2024 Ecg routine ecg w/le ast 12 lds w/i&r Daisy Johnson MD Work Phone: Start: 06-29-2024 Iaadiadoo streptococ cus group a Paz Correa MD Work Phone: Start: 08-26-2023 Mammography Sancho Tana sheets CN Work Phone: Start: 06-11-2022 Microscopic observat ion [Identifier] in Cervix by Cyto stain Sancho Giuliana CN Work Phone: Plan of Treatment Date Care Activity Detail Author Start: 06-12-2027 Screening for malignant neoplasm of cervix [facility] Start: 07-20-2025 Adult BMI Screening Adult BMI Screening [facility] Start: 07-20-2025 Tobacco Screening Tobacco Screening [facility] Start: 06-11-2025 Screening for malignant neoplasm of cervix Pap Smear [facility] Start: 11-12-2024 Influenza vaccination [facility] Start: 08-25-2024 Screening for malignant neoplasm of breast Mammogram [facility] Start: 08-15-2024 End: 08-15-2024 Patient encounter procedure 08/15/2024 7:30 AM EDT Appointment [facility] [address] [place] [id number] Daisy Johnson MD [address] [place] [address] [facility] Start: 07-20-2024 End: 07-20-2025 Echo complete W/O contrast Echo complete W/O contrast Echocardiography Routine Palpitation Expected: 07/20/2024, Expires: 07/20/2025 [facility] Work Phone: Comment on above: Expected: 07/20/2024, Expires: Start: 06-29-2024 End: 06-29-2024 Patient encounter procedure 06/29/2024 9:40 AM EDT Office Visit [facility] [address] [place] [phone] Paz Correa MD [address] [place] [address] Arrived [facility] Comment on above: Arrived Start: 02-21-2024 End: 02-20-2025 Lipid 1996 panel - Serum or Plasma Lipid panel Lab Routine Normal gynecologic examination Wellness examination Expected: 02/21/2024 (Approximate), Expires: 02/20/2025 [facility] Comment on above: Expected: 02/21/2024 (Approximate), Expi res: 02/20/2025 Start: 02-21-2024 End: 02-20-2025 TSH W/REFLEX TO FT4 TSH W/REFLEX TO FT4 Lab Routine Normal gynecologic examination Wellness examination Expected: 02/21/2024 (Approximate), Expires: 02/20/2025 [facility] Comment on above: Expected: 02/21/2024 (Approximate), Expi res: 02/20/2025 Start: 02-21-2024 End: 02-21-2024 Patient encounter procedure 02/21/2024 1:00 PM EST Office Visit [facility] [address] [place] [address] Sancho Giordano CNM [address] [place], [place] [id number] Arrived [facility] Comment on above: Arrived Start: 11-13-2023 Influenza vaccination Influenza Vaccine (#1) [facility] Start: 03-11-1999 DTaP,Tdap and Td Vaccines (6 - Tdap) DTaP,Tdap and Td Vaccines (6 - Tdap) [facility] Start: 1998 Adult BMI Follow Up Plan Adult BMI Follow Up Plan [facility] Start: 1992 Depression Screening Depression Screening [facility] Start: 1980 Tobacco Counseling Tobacco Counseling [facility] CBC panel - Blood by Automated count CBC Lab Routine Normal gynecologic examination Wellness examination Ordered: 02/21/2024 [facility] Work Phone: Comment on above: Ordered: 02/21/2024 Comprehensive metabolic 2000 panel - Serum or Plasma Comprehensive metabolic panel Lab Routine Normal gynecologic examination Wellness examination Ordered: 02/21/2024 [facility] Comment on above: Ordered: 02/21/2024 Immunizations Immunization Date Immunization Notes Care Provider Fa cili 01-06-2009 influenza virus vaccine, unspecified formulation Daisy Johnson MD Work Phone: [facility] Payers Date Payer Category Payer Commercial Managed C are - PPO [employer] [id number] 2024 Private Health Insurance [employer] [id number] 2024 Unknown [id number] 2015 Managed Care HMO (unspecified) [employer] [id number] 1980 Unknown [id number] [id number] 1980 Unknown [id number] [id number]. [id number] 1980 Unknown [id number] [id number]. [id number] 1980 Unknown [id number] [id number]. [id number] 1980 Unknown [id number] [id number] [id number] 1980 Unknown [id number] [id number]. [id number] 1980 Unknown [id number] [id number]. 2.1259 1980 Unknown [id number] [id number]. 2.1259 1980 Unknown [id number] [id number]. 2.1286 1980 Unknown [id number] [id number] 1959 Private Health Insurance [id number] Social History Date Type Detail Facility Tobacco smoking stat [facility] Tobacco smoking consumption unknown [facility] Start: 1980 Sex assigned at Female [facility] Start: 01-27-2023 Gender identity Identifies as female gender (finding) [facility] Start: 04-24-2020 End: 02-21-2024 Sexual orientation Not on file [facility] Start: 02-21-2024 [facility] Start: 09-21-2020 History of tobacco use Cigarette Smo ker [facility] Start: 02-21-2024 End: 07-20-2024 Tobacco use and exposure Smokeless tobacco non-user [facility] Start: 02-21-2024 End: 07-20-2024 Alcoholic beverage intake Current drinker of alcohol (finding) [facility] Start: 04-24-2020 End: 02-21-2024 History of Social function [facility] Start: 09-21-2020 Tobacco smoking stat [facility]as[facility] Start: 10-07-2020 Alcohol Comment 6 PER [facility] Start: 1980 Sex assigned at Not on file P [facility] Start: 10-17-2014 Sex Female (finding) [facility] Functional Status Date Assessment Result Facility 06-29-2024 Patient Health Quest ionnaire 2 item (PHQ-2) [Reported] [facility] History of Present illness Narrative 07-20-2024 Daisy Johnson MD - 07/20/2024 9:30 AM EDT Note Date & Type Note Facility 07-20-2024 History of Present illness Narrative Margo Dick Date of visit: 07/20/2024 Date of : 1980 Age: 44 y.o. Patient Active Problem List Diagnosis Tachycardia No Known Allergies Current Outpatient Medications Medication Sig Dispense Refill metoprolol succinate XL (TOPROL-XL) 25 mg 24 hr tablet Take 0.5 tablets (12.5 mg total) by mouth daily. (Patient not taking: Reported on 07/20/2024) 30 tablet 11 No current facility-administered medications for this visit. Chief Complaint Patient presents with New Patient MASTIC MAN RE ESTABLISH LS 11/25/20 TMP, NO RECENT TESTING, NO DEVICES, SCHED W/PT History of Present Illness 44-year-old female is here to reestablish care for palpitations. Symptoms started in 2020 with benign monitor. 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 Her echocardiogram from 2020 reviewed there is no evidence of prolapse Blood pressure is elevated today and back in [address] Caballero she does not check it at home Past Medical History: Diagnosis Date Mitral valve prolapse Tachycardia Varicella I was a kid No data recorded No data recorded No data recorded Past Surgical History: Procedure Laterality Date TUBAL LIGATION 2015 Family History Problem Relation Age of Onset Breast cancer Maternal Grandmother No Known Problems Mother Heart disease Father Mitral valve and a pacemaker and had some other work done on his heart in june of 2024 Social History Socioeconomic History Marital status: Spouse name: Not on file Number of children: Not on file Years of education: Not on file Highest education level: Not on file Occupational History Not on file Tobacco Use Smoking status: Some Days Types: Cigarettes Start date: 09/21/2020 Smokeless tobacco: Never Vaping Use Vaping status: Never Used Substance and Sexual Activity Alcohol use: Yes Alcohol/week: 5.0 standard drinks of alcohol Types: 5 Cans of beer per week Comment: 6 PER WK Drug use: Never Sexual activity: Yes Partners: Male control/protection: Surgical Other Topics Concern Caffeine Use Yes Social History Narrative Not on file Social Drivers of Health Financial Resource Strain: Not on file Food Insecurity: No Food Insecurity (07/20/2024) Hunger Screening Food Insecurity - Worry: Never True Food Insecurity - Inability: Never True Transportation Needs: Not on file Physical Activity: Not on file Stress: Not on file Social Connections: Not on file Interpersonal Safety: Not on file Housing Instability: Not on file Review of Systems Review of Systems Constitutional: Negative. HENT: Negative. Eyes: Negative. Cardiovascular: Negative. Respiratory: Negative. Endocrine: Negative. Hematologic/Lymphatic: Negative. Skin: Negative. Musculoskeletal: Negative. Gastrointestinal: Negative. Genitourinary: Negative. Neurological: Negative. Psychiatric/Behavioral: Negative. Allergic/Immunologic: Positive for environmental allergies. Vascular: Negative. CARDIOVASCULAR: Please review HPI. Physical Examination General appearance: Alert, oriented and cooperative. In no acute distress. Skin: Warm and dry to touch. Head: Normocephalic, without obvious abnormality, atraumatic. Ears, Nose, Mouth, Throat: Throat clear without erythema or exudate. Dentition intact. Eyes: Conjunctivae unremarkable, EOM intact. Neck: No JVD, No carotid bruit. Neck supple, trachea midline. Respiratory: Clear to auscultation bilaterally, no use of accessory muscles. Cardiovascular: RRR with normal S1 and S2 with no murmurs. Gastrointestinal: Soft, non-tender. Bowel sounds normal. Musculoskeletal: No peripheral edema. Neurologic: Oriented to time, person and place, affect appropriate. No focal/major motor defects noted. Psychiatric: Appropriate mood, memory and judgement. VITAL SIGNS: BP 134/82 Pulse 82 Ht 165.1 cm (5' 5 ) Wt 68.8 kg (151 lb 9.6 oz) SpO2 98% BMI 25.23 kg/m No orders of the defined types were placed in this encounter. There are no discontinued medications. IMPRESSIONS/PLAN 1. 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 PCP: Kristan Edwards MD Referring Physician: Kristan Edwards MD [address] [place] [address] documented in this encounter [facility] Instructions 07-20-2024 Patient Instructions Note Date & Type Note Facility 07-20-2024 Instructions Becky Keys, LIZY - 07/20/2024 9:30 AM EDT Are You Ready To Kick The Habit? Free Tobacco Cessation Resources [facility] provide all employees with free tobacco cessation services that include: Counseling to understand nicotine addiction Education about medications that can help you successfully quit Assistance with developing a plan to quit Call to set up an individual appointment or find out when group classes will be held: [facility]: [phone] [facility]: [phone] [facility]: [phone] [facility]: [phone] Quit Smoking Action Plan and Resources [facility] offers an eight-week, online smoking cessation plan to all [facility] employees, regardless of whether [employer] is your medical insurance provider. Go to [email or web address].[email or web address] and click the Health Risk Assessment and Resources link to get started. In the [employer]Market menu, click Action Plans instead of Health Risk Assessment to access the Quit Smoking Action Plan. Additional smoking cessation resources are also available to all [facility] employees on the Qnmpt4Vsntjn web page at [email or web address] [email or web address]. [employer] Tobacco Cessation Program If [employer] is your medical insurance provider, there are more free resources available to you, including: No copays or deductibles on local tobacco cessation counseling services to help you quit Prescription assistance for tobacco cessation medications to help you quit For details about the tobacco cessation program available to [employer] members, go to www.[employer] (Search: Tobacco Cessation Program). [place] Tobacco Quit Line 4-320-BKRE-NOW ( ) is a toll-free, telephonic service that helps [place] residents quit smoking and using tobacco. It is staffed by experts who tailor a quit plan for you and provide you with advice. [place] Tobacco Quit Line 2-175-PIIH-NOW ( ) is a toll-free, telephonic service that helps [place] residents quit smoking and using tobacco. It is staffed by experts who tailor a quit plan for you and provide you with advice. Two weeks of nicotine replacement therapy may be provided at no charge, if needed. Additional Resources These national organizations also offer free information and resources to help you quit tobacco: [employer]--www.cancer.org/healthy/staya wayfromtobacco [employer]--www.heart.org (Search: Quit Smoking) Centers for Disease Control and Prevention--www.cdc.gov/tobacco [employer]--www.lungusa.org documented in this encounter [facility] History of Present illness Narrative 06-29-2024 Paz Correa MD - 06/29/2024 9:40 AM EDT Note Date & Type Note Facility 06-29-2024 History of Presen t illness Narrative Images from the original note were not included. Margo Dick is a 44 y.o. female presents with chief complaint of Sore Throat and Annual Exam HPI: HPI History of Present Illness The patient presents for evaluation of throat pain. Throat discomfort is reported, with onset occurring recently. No fever is believed to be present. A strep test is suggested due to swollen glands observed during the examination. Discussion includes the possibility of mono, which can mimic strep throat but does not respond to antibiotics and may cause an aggressive rash. SUBJECTIVE: MEDICATIONS: No current outpatient medications ALLERGIES: No Known Allergies SURGICAL HISTORY: Past Surgical History: Procedure Laterality Date TUBAL LIGATION FAMILY HISTORY: Family History Problem Relation Name Age of Onset Rheum arthritis Mother SOCIAL HISTORY: Social History Tobacco Use Smoking status: Every Day Types: Cigarettes Smokeless tobacco: Never Substance Use Topics Alcohol use: Yes Drug use: Never Depression: Not at risk (06/29/2024) PHQ-2 PHQ-2 Score: 0 REVIEW OF SYMPTOMS: Review of Systems OBJECTIVE: Visit Vitals BP 136/78 (BP Location: Right arm, Patient Position: Sitting, BP Cuff Size: Adult) Pulse 81 Resp 18 Ht 5' 6 Wt 156 lb SpO2 99% BMI 25.18 kg/m OB Status Having periods Smoking Status Every Day BSA 1.82 m Physical Exam Constitutional: Appearance: Normal appearance. She is normal weight. HENT: Head: Normocephalic and atraumatic. Right Ear: Tympanic membrane and ear canal normal. Left Ear: Tympanic membrane and ear canal normal. Nose: Congestion and rhinorrhea present. Mouth/Throat: Mouth: Mucous membranes are moist. Pharynx: Oropharyngeal exudate present. Eyes: Pupils: Pupils are equal, round, and reactive to light. Cardiovascular: Rate and Rhythm: Normal rate and regular rhythm. Heart sounds: No murmur heard. Pulmonary: Effort: Pulmonary effort is normal. Breath sounds: Normal breath sounds. No wheezing or rhonchi. Musculoskeletal: General: No swelling. Cervical back: Normal range of motion and neck supple. Right lower leg: No edema. Left lower leg: No edema. Lymphadenopathy: Cervical: No cervical adenopathy. Skin: General: Skin is warm and dry. Findings: No rash. Neurological: General: No focal deficit present. Mental Status: She is alert and oriented to person, place, and time. Mental status is at baseline. Sensory: No sensory deficit. Gait: Gait normal. Psychiatric: Mood and Affect: Mood normal. Behavior: Behavior normal. Thought Content: Thought content normal. Judgment: Judgment normal. ASSESSMENT AND PLAN: Assessment/Plan Problem List Items Addressed This Visit None Visit Diagnoses Acute pharyngitis, unspecified etiology - Primary Relevant Medications amoxicillin (Amoxil) 500 MG capsule Other Relevant Orders POCT rapid strep A manually resulted (Completed) Assessment & Plan 1. Pharyngitis. - Reports a sore throat without fever. - Examination reveals swollen glands. - + strep amox sent. documented in this encounter [facility] History of Present illness Narrative 02-21-2024 Sancho Giordano CNM - 02/21/2024 1:00 PM EST Note Date & Type Note Facility 02-21-2024 History of Presen t illness Narrative YEARLY HPI: This is a new patient. Chief Complaint Patient presents with Gynecologic Exam Here for annual exam. OB History Para Term AB Living 6 6 5 SAB IAB Ectopic Multiple Live Births # Outcome Date GA Lbr Devang/2nd Weight Sex Type Anes PTL Lv 6 Para 5 Term 4 Term 3 Term 2 Term 1 Term [employer] complaints: no Changes in healthsince last visit: no Surgeries or hospitalizations since last visit: no control method: tubal Menses: regular Last pap: 06/11/22 Other: History: History reviewed. No pertinent past medical history. Past Surgical History: Procedure Laterality Date TUBAL LIGATION Family History Problem Relation Name Age of Onset Rheum arthritis Mother Allergies: No Known Allergies Medications: No current outpatient medications on file prior to visit. No current facility-administered medications on file prior to visit. ROS: Review of Systems All other systems reviewed and are negative. There were no vitals filed for this visit. Physical exam: Physical Exam Vitals reviewed. Constitutional: Appearance: Normal appearance. HENT: Head: Normocephalic. Right Ear: Tympanic membrane normal. Left Ear: Tympanic membrane normal. Mouth/Throat: Mouth: Mucous membranes are moist. Eyes: Pupils: Pupils are equal, round, and reactive to light. Cardiovascular: Rate and Rhythm: Normal rate and regular rhythm. Pulses: Normal pulses. Heart sounds: Normal heart sounds. Pulmonary: Effort: Pulmonary effort is normal. Breath sounds: Normal breath sounds. Chest: Breasts: Right: Normal. Left: Normal. Abdominal: General: Abdomen is flat. Bowel sounds are normal. Palpations: Abdomen is soft. Tenderness: There is no abdominal tenderness. Genitourinary: General: Normal vulva. Exam position: Lithotomy position. Vagina: Normal. No tenderness. Cervix: Normal. No cervical motion tenderness. Uterus: Normal. Adnexa: Right adnexa normal and left adnexa normal. Musculoskeletal: General: Normal range of motion. Cervical back: Normal range of motion and neck supple. Skin: General: Skin is warm and dry. Neurological: General: No focal deficit present. Mental Status: She is alert and oriented to person, place, and time. Psychiatric: Mood and Affect: Mood normal. Assessment and Plan: 1. Annual exam 2. SBE discussed: Yes 3. Diet and exercise discussed: Yes 4. Wt control discussed: No 5. Safe sex discussed: No Margo was seen today for gynecologic exam. Diagnoses and all orders for this visit: Normal gynecologic examination No follow-ups on file. There are no Patient Instructions on file for this visit. Kristan Marquis MA, 02/21/2024 1:06 PM documented in this encounter [facility] Evaluation note Note Date & Type Note Facility Evaluation note Diagnosis Wellness examination- Primary Normal gynecologic examination documented in this encounter [facility] Evaluation note Note Date & Type Note Facility Evaluation note Diagnosis Acute pharyngitis, unspecified etiology- Primary documented in this encounter [facility] Evaluation note Note Date & Type Note Facility Evaluation note Diagnosis Tachycardia- Primary Unspecified tachycardia Palpitation Palpitations Primary hypertension Unspecified essential hypertension documented in this encounter [facility] Summary Purpose Family History No Family History Records FoundNo Family History Records FoundNo Family History Records Found Advance Directives No Advanced Directives Records FoundNo Advanced Directives Records FoundNo Advanced Directives Records Found Additional Source Comments INFORMATION SOURCE (unrecogn ized section and content) DATE CREATED AUTHOR 06/28/2022 [facility] DATE CREATED AUTHOR AUTHOR'S ORGANIZ ATION 07/01/2024 [facility] EPIC DATE CREATED AUTHOR AUTHOR'S ORGANIZ ATION 08/17/2024 [facility] Care Teams (unrecognized sec tion and content) [employer] Relationship Specialty Start Date End Date Paz Correa MD [address] [place] [address] PCP - General Family Medicine 07/20/22 [employer] Relationship Specialty Start Date End Date Paz Correa MD [address] [place] [address] PCP - General Family Medicine 07/20/22 [employer] Relationship Specialty Start Date End Date Kristan Edwards MD [address] [place] [address] PCP - General Family Medicine 09/23/17 Reason for Visit (unrecogniz ed section and content) Reason Comments Gynecologic Exam Reason Comments Sore Throat Annual Exam Reason Comments New Patient 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 This clinical summary was aggregated from multiple sources. Caution should be exercised in using it in the provision of clinical care. This summary normalizes information from multiple sources, and as a consequence, information in this document may materially change the coding, format and clinical context of patient data. In addition, data may be omitted in some cases. CLINICAL DECISIONS SHOULD BE BASED ON THE PRIMARY CLINICAL RECORDS. [facility] [employer] [facility]. provides no warranty or guarantee of the accuracy or completeness of information in this document.
== END 2024-08-24 12:59 | disposition home or self-care (01) ==
LOC: MAMMO 12:58
PROVIDERS: PCP Family Medicine; Visit Provider Midwife
DX: Z12.31 Encounter for screening mammogram for malignant neoplasm of breast (principal); R92.8 Other abnormal and inconclusive findings on diagnostic imaging of breast; Z80.8 Family history of malignant neoplasm of other organs or systems; Z80.3 Family history of malignant neoplasm of breast
CPT/HCPCS: 77063; 77067